=== PATIENT | male | born 1950 | race Caucasian/White ===

== ENCOUNTER 2019-04-19 02:08 | Inpatient (IN) | payer MEDICARE ==
[2019-04-19] MEDS: SODIUM CHLORIDE 0.9% 1L BAG IV* (02:32)
[2019-04-19 02:36] LABS: WHITE BLOOD COUNT 23.1 10^3/ul (4.8-10.8)
[2019-04-19 02:36] LABS: ABNORMAL IP MESSAGE 1; BASOPHILS % 0.2 % (0.0-2.0); HEMATOCRIT 35.4 % (42.0-52.0); HEMOGLOBIN 11.7 g/dl (14.0-18.0); LYMPHOCYTES # 0.6 10^3/ul (0.8-2.9); LYMPHOCYTES % 2.6 % (15.0-51.0); MEAN CORPUSCULAR HEMOGLOBIN 31.5 pg (29.0-33.0); MEAN CORPUSCULAR HGB CONC 33.1 g/dl (32.0-37.0); MEAN CORPUSCULAR VOLUME 95.2 fl (82.0-101.0); MEAN PLATELET VOLUME 10.3 fl (7.4-10.4); MONOCYTES % 4.2 % (0.0-11.0); NEUTROPHIL # 21.4 10^3/ul (1.6-7.5); NEUTROPHILS % 92.4 % (39.0-77.0); PLATELET COUNT 326 10^3/UL (140-415); POSITIVE DIFF @See below; RED BLOOD COUNT 3.72 10^6/ul (4.70-6.10); RED CELL DISTRIBUTION WIDTH 16.1 % (11.5-14.5)
[2019-04-19] MEDS: PIPER-TAZO 3.375 GM IV (PMX) 100 ML IVPB ×3 (02:38→21:28)
[2019-04-19 02:55] LABS: ADD MAN DIFF? NO
[2019-04-19 02:56] LABS: INR 1.51; PROTIME 18.3 Sec (11.9-14.9); PT RATIO 1.4
[2019-04-19 02:57] LABS: PARTIAL THROMBOPLASTIN TIME 65.8 Sec (23.0-35.0)
[2019-04-19 03:04] LABS: URINE BLOOD (Dip) POC Negative (NEGATIVE); URINE GLUCOSE (Dip) POC Negative (NEGATIVE); URINE KETONES (Dip) POC Negative (NEGATIVE); URINE LEUKOCYTE EST (Dip) POC Negative (NEGATIVE); URINE NITRITE (Dip) POC Negative (NEGATIVE); URINE TOTAL PROTEIN POC 1+ (NEGATIVE)
[2019-04-19 03:04] LABS: URINE PH (Dip) POC 7.5 (5.0-8.5)
[2019-04-19] MEDS: HYDROmorphONE 0.5 MG/0.5 ML SYG IV ×6 (03:04→23:27)
[2019-04-19 03:06] LABS: ALANINE AMINOTRANSFERASE 32 IU/L (13-69); ALBUMIN/GLOBULIN RATIO 0.55; ALKALINE PHOSPHATASE 128 IU/L (42-121); ANION GAP 5 (5-13); ASPARTATE AMINO TRANSFERASE 28 IU/L (15-46); BILIRUBIN,INDIRECT 0.6 mg/dl (0-1.1); BILIRUBIN,TOTAL 0.6 mg/dl (0.2-1.3); BLOOD UREA NITROGEN 16 mg/dl (7-20); CALCIUM 8.7 mg/dl (8.4-10.2); CARBON DIOXIDE 28 mmol/L (21-31); CHLORIDE 107 mmol/L (97-110); CREATININE 0.34 mg/dl (0.61-1.24); Estimated GFR > 60 mL/min (>60); GLUCOSE 123 mg/dl (70-220); SODIUM 140 mmol/L (135-144); TOTAL PROTEIN 8.4 g/dl (6.1-8.1)
[2019-04-19] MEDS: VANCOMYCIN 1 GM (PMX) 250 ML IVPB (03:13)
[2019-04-19 03:17] LABS: TROPONIN-I < 0.012 ng/ml (0.000-0.120)
[2019-04-19 03:35] LABS: Allen Test ACCEPTAB; Arterial Base Excess 3.1 mmol/L (-3.0-3); Arterial Blood Gas Oxygen Sat 96.7 mmHG (95.0-98.0); Arterial COHb 0 % (0.0-3.0); Arterial Fraction of Oxyhgb 96.3 % (93.0-99.0); Arterial HCO3 27.2 mmol/L (22.0-26.0); Arterial MetHb 0.4 % (0.0-1.5); Arterial pCO2 39.7 mmhg (35-45); Site Right Radial
[2019-04-19 04:00] LABS: ADD UMIC YES; UR AMORPHOUS CRYSTAL MANY /HPF (NONE SEEN); UR ASCORBIC ACID 40 mg/dL (NEGATIVE); UR BILIRUBIN (Dip) NEGATIVE (NEGATIVE); UR BLOOD (Dip) NEGATIVE (NEGATIVE); UR CLARITY CLOUDY (CLEAR); UR COLOR YELLOW (YELLOW); UR GLUCOSE (Dip) NEGATIVE (NEGATIVE); UR KETONES (Dip) NEGATIVE (NEGATIVE); UR LEUKOCYTE ESTERASE (Dip) NEGATIVE Leu/ul (NEGATIVE); UR NITRITE (Dip) NEGATIVE (NEGATIVE); UR RBC 1 /HPF (0-5); UR SPECIFIC GRAVITY (Dip) 1.019 (1.003-1.030); UR TOTAL PROTEIN (Dip) NEGATIVE (NEGATIVE); UR UROBILINOGEN (Dip) NEGATIVE (NEGATIVE); UR WBC 0 /HPF (0-5)
[2019-04-19 04:56] LABS: LACTIC ACID 2.3 mmol/L (0.5-2.0)
[2019-04-19] MEDS ORDERED: ONDANSETRON 4 MG INJ (04:56)
[2019-04-19] MEDS: ONDANSETRON 4 MG INJ IV ×4 (04:59→22:56)
[2019-04-19 05:03] LABS: AADO2 Arterial 223.6 mmHg (7.0-24.0); Blood Gas IEPAP 15/5
[2019-04-19 05:49] LABS: MODE VENT - AC
[2019-04-19 07:15] LABS: LACTIC ACID 1.4 mmol/L (0.5-2.0)
[2019-04-19] MEDS ORDERED: DOCUSATE SODIUM 10 MG/ML (10ML CUP) GTB (08:00)
[2019-04-19] MEDS: LACTULOSE 30ML CUP PO (08:00)
[2019-04-19] MEDS ORDERED: ONDANSETRON 4 MG TAB PO (08:00)
[2019-04-19] MEDS ORDERED: AL HYDROX/MG HYDROX/SIMETH 30 ML CUP GTB (08:00)
[2019-04-19] MEDS ORDERED: PANTOPRAZOLE (EC) 40 MG TAB PO (09:00)
[2019-04-19] MEDS: DEXTROSE 5%-0.45% NACL 1,000 ML IV (10:59)
[2019-04-19] MEDS: AMIODARONE 200 MG TAB GTB ×2 (11:03→21:01)
[2019-04-19] MEDS: ESCITALOPRAM 10 MG TAB GTB (11:03)
[2019-04-19] MEDS: LANSOPRAZOLE 30 MG CAP GTB (11:03)
[2019-04-19] MEDS: CHLORHEXIDINE GLUCONATE 15 ML UD CUP MM ×2 (11:03→21:01)
[2019-04-19] MEDS: LIDOCAINE 5% PATCH TD (11:06)
[2019-04-19] MEDS: BUDESONIDE (NEB) 0.5MG/2ML AMP NEB ×2 (12:34→20:36)
[2019-04-19] MEDS: LACTULOSE 30ML CUP GTB ×2 (13:31→21:01)
[2019-04-19] MEDS: ALBUTEROL/IPRATROPIUM (NEB) 3 ML AMP NEB (20:36)
[2019-04-19] MEDS: BALSAM PERU/CASTOR OIL 60 GM TUBE TOP (21:28)
[2019-04-20] MEDS: LACTULOSE 30ML CUP GTB ×4 (02:02→21:32)
[2019-04-20] MEDS: DEXTROSE 5%-0.45% NACL 1,000 ML IV (02:07)
[2019-04-20] MEDS: HYDROmorphONE 0.5 MG/0.5 ML SYG IV ×3 (04:28→13:34)
[2019-04-20] MEDS: PIPER-TAZO 3.375 GM IV (PMX) 100 ML IVPB ×3 (05:49→21:34)
[2019-04-20 06:03] LABS: WHITE BLOOD COUNT 8.5 10^3/ul (4.8-10.8)
[2019-04-20 06:03] LABS: HEMATOCRIT 28.4 % (42.0-52.0); HEMOGLOBIN 9.2 g/dl (14.0-18.0); MEAN CORPUSCULAR HEMOGLOBIN 31.4 pg (29.0-33.0); MEAN CORPUSCULAR HGB CONC 32.4 g/dl (32.0-37.0); MEAN CORPUSCULAR VOLUME 96.9 fl (82.0-101.0); MEAN PLATELET VOLUME 10.6 fl (7.4-10.4); PLATELET COUNT 229 10^3/UL (140-415); POSITIVE DIFF @See below; RED BLOOD COUNT 2.93 10^6/ul (4.70-6.10); RED CELL DISTRIBUTION WIDTH 16.5 % (11.5-14.5)
[2019-04-20 06:05] LABS: ADD MAN DIFF? YES
[2019-04-20 06:20] LABS: ANION GAP 1 (5-13); BLOOD UREA NITROGEN 16 mg/dl (7-20); CALCIUM 8.6 mg/dl (8.4-10.2); CARBON DIOXIDE 31 mmol/L (21-31); CHLORIDE 113 mmol/L (97-110); CREATININE 0.38 mg/dl (0.61-1.24); Estimated GFR > 60 mL/min (>60); GLUCOSE 121 mg/dl (70-220); MAGNESIUM 1.7 mg/dl (1.7-2.5); PHOSPHORUS 1.9 mg/dl (2.5-4.9); SODIUM 145 mmol/L (135-144)
[2019-04-20 06:39] LABS: POTASSIUM 2.7 mmol/L (3.5-5.1)
[2019-04-20 07:42] LABS: AADO2 Arterial 148.7 mmHg (7.0-24.0); Allen Test ACCEPTAB; Arterial Base Excess 4.8 mmol/L (-3.0-3); Arterial Blood Gas Oxygen Sat 97.1 mmHG (95.0-98.0); Arterial COHb 0.3 % (0.0-3.0); Arterial Fraction of Oxyhgb 96.5 % (93.0-99.0); Arterial HCO3 28.7 mmol/L (22.0-26.0); Arterial MetHb 0.3 % (0.0-1.5); Arterial pCO2 39.6 mmhg (35-45); MODE VENT - AC; Site Right Radial
[2019-04-20] MEDS: POTASSIUM CHLORIDE 20 MEQ POWDER FOR ORAL SOLN GTB (07:53)
[2019-04-20] MEDS: MULTIVITAMINS 30 ML CUP GTB (08:58)
[2019-04-20] MEDS: ESCITALOPRAM 10 MG TAB GTB (08:59)
[2019-04-20] MEDS: LANSOPRAZOLE 30 MG CAP GTB (08:59)
[2019-04-20] MEDS: ZINC SULFATE 220 MG CAP GTB (08:59)
[2019-04-20] MEDS: AMIODARONE 200 MG TAB GTB ×2 (08:59→21:31)
[2019-04-20] MEDS: CHLORHEXIDINE GLUCONATE 15 ML UD CUP MM ×2 (08:59→21:31)
[2019-04-20] MEDS: BALSAM PERU/CASTOR OIL 60 GM TUBE TOP ×2 (09:00→21:32)
[2019-04-20] MEDS: MAGNESIUM SULFATE 3 GM in DEXTROSE 5% 100 ML IVPB (09:01)
[2019-04-20] MEDS: LIDOCAINE 5% PATCH TD (09:01)
[2019-04-20] MEDS: FOLIC ACID 1 MG TAB GTB (09:01)
[2019-04-20 09:29] LABS: ANISOCYTOSIS 1+ (0-0); BAND NEUTROPHILS #M 0.7 10^3/ul (0.0-0.6); BAND NEUTROPHILS % (M) 9 % (0-4); BURR CELLS 1+ (0-0); LYMPHOCYTES #M 0.7 10^3/ul (0.8-2.9); LYMPHOCYTES % (M) 9 % (15-51); MONOCYTE #M 0.4 10^3/ul (0.3-0.9); MONOCYTES % (M) 5 % (0-11); PLATELET ESTIMATE NORMAL; POIKILOCYTOSIS 2+ (0-0); POLYCHROMASIA 1+ (0-0); SEG NEUT #M 6.6 10^3/ul (1.6-7.5); SEGMENTED NEUTROPHILS (M) % 77 % (39-77); SMUDGE%M 15 % (0-0); SPHEROCYTES 1+ (0-0)
[2019-04-20] MEDS: BUDESONIDE (NEB) 0.5MG/2ML AMP NEB ×2 (09:35→20:32)
[2019-04-20] MEDS: ASCORBIC ACID 250 MG TAB GTB (11:01)
[2019-04-20 14:46] LABS: ANION GAP 4 (5-13); BLOOD UREA NITROGEN 12 mg/dl (7-20); CALCIUM 8.1 mg/dl (8.4-10.2); CARBON DIOXIDE 28 mmol/L (21-31); CHLORIDE 112 mmol/L (97-110); CREATININE 0.35 mg/dl (0.61-1.24); Estimated GFR > 60 mL/min (>60); GLUCOSE 116 mg/dl (70-220); POTASSIUM 3.4 mmol/L (3.5-5.1); SODIUM 144 mmol/L (135-144)
[2019-04-20] MEDS ORDERED: VANCOMYCIN IV PER PHARMACY XX (15:00)
[2019-04-20] MEDS: VANCOMYCIN 500 MG (PMX) 100 ML IVPB (15:34)
[2019-04-20] MEDS: ACETAMINOPHEN 650MG/20.3ML CUP GTB (18:04)
[2019-04-20] MEDS: ZOLPIDEM 5 MG TAB GTB (18:04)
[2019-04-20] MEDS: ONDANSETRON 4 MG INJ IV (23:06)
[2019-04-21] MEDS: HYDROmorphONE 0.5 MG/0.5 ML SYG IV ×2 (01:35→13:27)
[2019-04-21] MEDS: LACTULOSE 30ML CUP GTB ×4 (03:50→20:00)
[2019-04-21] MEDS: ZOLPIDEM 5 MG TAB GTB ×2 (03:51→21:18)
[2019-04-21] MEDS: VANCOMYCIN 500 MG (PMX) 100 ML IVPB (03:52)
[2019-04-21] MEDS: PIPER-TAZO 3.375 GM IV (PMX) 100 ML IVPB ×3 (05:49→22:58)
[2019-04-21 05:55] LABS: ADD MAN DIFF? NO
[2019-04-21 06:09] LABS: WHITE BLOOD COUNT 6.8 10^3/ul (4.8-10.8)
[2019-04-21 06:09] LABS: BASOPHILS % 0.1 % (0.0-2.0); EOSINOPHILS % 0.4 % (0.0-7.0); HEMATOCRIT 27.5 % (42.0-52.0); HEMOGLOBIN 8.8 g/dl (14.0-18.0); LYMPHOCYTES # 1.1 10^3/ul (0.8-2.9); LYMPHOCYTES % 16.5 % (15.0-51.0); MEAN CORPUSCULAR HEMOGLOBIN 31.4 pg (29.0-33.0); MEAN CORPUSCULAR VOLUME 98.2 fl (82.0-101.0); MEAN PLATELET VOLUME 10.7 fl (7.4-10.4); MONOCYTE # 0.4 10^3/ul (0.3-0.9); MONOCYTES % 5.6 % (0.0-11.0); NEUTROPHIL # 5.2 10^3/ul (1.6-7.5); PLATELET COUNT 205 10^3/UL (140-415); RED CELL DISTRIBUTION WIDTH 16.1 % (11.5-14.5)
[2019-04-21 06:33] LABS: ALANINE AMINOTRANSFERASE 31 IU/L (13-69); ALBUMIN 2.3 g/dl (3.3-4.9); ALBUMIN/GLOBULIN RATIO 0.52; ALKALINE PHOSPHATASE 82 IU/L (42-121); ANION GAP 3 (5-13); ASPARTATE AMINO TRANSFERASE 25 IU/L (15-46); BILIRUBIN,INDIRECT 0.5 mg/dl (0-1.1); BILIRUBIN,TOTAL 0.5 mg/dl (0.2-1.3); BLOOD UREA NITROGEN 12 mg/dl (7-20); CALCIUM 7.9 mg/dl (8.4-10.2); CARBON DIOXIDE 29 mmol/L (21-31); CHLORIDE 110 mmol/L (97-110); CREATININE 0.29 mg/dl (0.61-1.24); Estimated GFR > 60 mL/min (>60); GLUCOSE 111 mg/dl (70-220); MAGNESIUM 1.7 mg/dl (1.7-2.5); POTASSIUM 3.2 mmol/L (3.5-5.1); SODIUM 142 mmol/L (135-144); TOTAL PROTEIN 6.7 g/dl (6.1-8.1)
[2019-04-21 06:54] LABS: PHOSPHORUS 1.6 mg/dl (2.5-4.9)
[2019-04-21] MEDS: CHLORHEXIDINE GLUCONATE 15 ML UD CUP MM ×2 (08:55→21:23)
[2019-04-21] MEDS: ZINC SULFATE 220 MG CAP GTB (08:56)
[2019-04-21] MEDS: LANSOPRAZOLE 30 MG CAP GTB (08:56)
[2019-04-21] MEDS: ASCORBIC ACID 250 MG TAB GTB (08:56)
[2019-04-21] MEDS: AMIODARONE 200 MG TAB GTB ×2 (08:56→21:18)
[2019-04-21] MEDS: FOLIC ACID 1 MG TAB GTB (08:56)
[2019-04-21] MEDS: ESCITALOPRAM 10 MG TAB GTB (08:56)
[2019-04-21] MEDS: MULTIVITAMINS 30 ML CUP GTB (08:57)
[2019-04-21] MEDS: COLLAGENASE 5 GM (UD JAR) TOP (09:05)
[2019-04-21] MEDS: BALSAM PERU/CASTOR OIL 60 GM TUBE TOP ×2 (09:06→21:23)
[2019-04-21] MEDS: LIDOCAINE 5% PATCH TD (09:06)
[2019-04-21] MEDS: BUDESONIDE (NEB) 0.5MG/2ML AMP NEB ×2 (09:25→21:04)
[2019-04-21] MEDS: POTASSIUM CHLORIDE 20 MEQ POWDER FOR ORAL SOLN GTB (13:27)
[2019-04-21 15:53] LABS: VANCOMYCIN,TROUGH 5.7 ug/ml (10.0-20.0)
[2019-04-21] MEDS: VANCOMYCIN 1 GM 250 ML IVPB (17:33)
[2019-04-21] MEDS: ONDANSETRON 4 MG INJ IV (19:33)
[2019-04-22] MEDS: HYDROmorphONE 0.5 MG/0.5 ML SYG IV ×2 (01:05→13:03)
[2019-04-22] MEDS: LACTULOSE 30ML CUP GTB ×4 (01:06→20:00)
[2019-04-22] MEDS: PIPER-TAZO 3.375 GM IV (PMX) 100 ML IVPB ×3 (05:05→23:26)
[2019-04-22] MEDS: VANCOMYCIN 1 GM 250 ML IVPB ×2 (05:37→18:49)
[2019-04-22 06:11] LABS: ADD MAN DIFF? NO
[2019-04-22 06:24] LABS: WHITE BLOOD COUNT 5.7 10^3/ul (4.8-10.8)
[2019-04-22 06:24] LABS: BASOPHILS % 0.4 % (0.0-2.0); EOSINOPHILS # 0.1 10^3/ul (0.0-0.5); EOSINOPHILS % 1.6 % (0.0-7.0); HEMATOCRIT 28.5 % (42.0-52.0); HEMOGLOBIN 9.1 g/dl (14.0-18.0); LYMPHOCYTES # 1.4 10^3/ul (0.8-2.9); LYMPHOCYTES % 23.9 % (15.0-51.0); MEAN CORPUSCULAR HEMOGLOBIN 30.8 pg (29.0-33.0); MEAN CORPUSCULAR HGB CONC 31.9 g/dl (32.0-37.0); MEAN CORPUSCULAR VOLUME 96.6 fl (82.0-101.0); MEAN PLATELET VOLUME 11.1 fl (7.4-10.4); MONOCYTE # 0.5 10^3/ul (0.3-0.9); MONOCYTES % 7.9 % (0.0-11.0); NEUTROPHIL # 3.8 10^3/ul (1.6-7.5); NEUTROPHILS % 65.7 % (39.0-77.0); PLATELET COUNT 195 10^3/UL (140-415); RED BLOOD COUNT 2.95 10^6/ul (4.70-6.10); RED CELL DISTRIBUTION WIDTH 15.7 % (11.5-14.5)
[2019-04-22 06:56] LABS: ANION GAP 3 (5-13); BLOOD UREA NITROGEN 11 mg/dl (7-20); CALCIUM 7.9 mg/dl (8.4-10.2); CARBON DIOXIDE 29 mmol/L (21-31); CHLORIDE 107 mmol/L (97-110); CREATININE 0.29 mg/dl (0.61-1.24); Estimated GFR > 60 mL/min (>60); GLUCOSE 82 mg/dl (70-220); MAGNESIUM 1.7 mg/dl (1.7-2.5); PHOSPHORUS 2.2 mg/dl (2.5-4.9); POTASSIUM 3.6 mmol/L (3.5-5.1); SODIUM 139 mmol/L (135-144)
[2019-04-22] MEDS: CHLORHEXIDINE GLUCONATE 15 ML UD CUP MM ×2 (09:17→20:39)
[2019-04-22] MEDS: COLLAGENASE 5 GM (UD JAR) TOP (09:17)
[2019-04-22] MEDS: LIDOCAINE 5% PATCH TD (09:17)
[2019-04-22] MEDS: ASCORBIC ACID 250 MG TAB GTB (09:18)
[2019-04-22] MEDS: LANSOPRAZOLE 30 MG CAP GTB (09:18)
[2019-04-22] MEDS: FOLIC ACID 1 MG TAB GTB (09:18)
[2019-04-22] MEDS: ESCITALOPRAM 10 MG TAB GTB (09:18)
[2019-04-22] MEDS: ZINC SULFATE 220 MG CAP GTB (09:18)
[2019-04-22] MEDS: BALSAM PERU/CASTOR OIL 60 GM TUBE TOP ×2 (09:19→20:40)
[2019-04-22] MEDS: AMIODARONE 200 MG TAB GTB ×2 (09:19→20:39)
[2019-04-22] MEDS: LORAZEPAM 2 MG INJ IV ×2 (09:20→17:22)
[2019-04-22] MEDS: MULTIVITAMINS 30 ML CUP GTB (09:28)
[2019-04-22] MEDS: BUDESONIDE (NEB) 0.5MG/2ML AMP NEB ×2 (09:48→21:05)
[2019-04-22] MEDS ORDERED: SODIUM PHOSPHATE 15 MMOL in SOD CHLORIDE 0.9% 250 ML IVPB (13:30)
[2019-04-22] MEDS: SOD CHLORIDE 0.9% IVPB (14:57)
[2019-04-22] MEDS: SODIUM PHOSPHATE IVPB (14:57)
[2019-04-22] MEDS: ZOLPIDEM 5 MG TAB GTB (20:40)
[2019-04-23] MEDS: HYDROmorphONE 0.5 MG/0.5 ML SYG IV ×2 (00:27→12:51)
[2019-04-23] MEDS: LORAZEPAM 2 MG INJ IV ×3 (01:15→22:49)
[2019-04-23] MEDS: LACTULOSE 30ML CUP GTB ×4 (02:00→20:28)
[2019-04-23] MEDS: PIPER-TAZO 3.375 GM IV (PMX) 100 ML IVPB ×3 (05:37→21:56)
[2019-04-23 05:46] LABS: ADD MAN DIFF? NO
[2019-04-23 06:06] LABS: BASOPHILS % 0.3 % (0.0-2.0); EOSINOPHILS # 0.1 10^3/ul (0.0-0.5); EOSINOPHILS % 1.2 % (0.0-7.0); HEMATOCRIT 27.5 % (42.0-52.0); LYMPHOCYTES # 1.2 10^3/ul (0.8-2.9); LYMPHOCYTES % 16.5 % (15.0-51.0); MEAN CORPUSCULAR HEMOGLOBIN 31.1 pg (29.0-33.0); MEAN CORPUSCULAR HGB CONC 32.7 g/dl (32.0-37.0); MEAN CORPUSCULAR VOLUME 95.2 fl (82.0-101.0); MONOCYTE # 0.7 10^3/ul (0.3-0.9); MONOCYTES % 9.3 % (0.0-11.0); NEUTROPHIL # 5.2 10^3/ul (1.6-7.5); NEUTROPHILS % 72.1 % (39.0-77.0); PLATELET COUNT 217 10^3/UL (140-415); RED BLOOD COUNT 2.89 10^6/ul (4.70-6.10); RED CELL DISTRIBUTION WIDTH 15.3 % (11.5-14.5)
[2019-04-23 06:06] LABS: WHITE BLOOD COUNT 7.2 10^3/ul (4.8-10.8)
[2019-04-23] MEDS: VANCOMYCIN 1 GM 250 ML IVPB (06:09)
[2019-04-23 06:48] LABS: ANION GAP 2 (5-13); BLOOD UREA NITROGEN 8 mg/dl (7-20); CALCIUM 7.4 mg/dl (8.4-10.2); CARBON DIOXIDE 30 mmol/L (21-31); CHLORIDE 104 mmol/L (97-110); CREATININE 0.26 mg/dl (0.61-1.24); Estimated GFR > 60 mL/min (>60); GLUCOSE 115 mg/dl (70-220); MAGNESIUM 1.7 mg/dl (1.7-2.5); POTASSIUM 3.3 mmol/L (3.5-5.1); SODIUM 136 mmol/L (135-144)
[2019-04-23] MEDS: BUDESONIDE (NEB) 0.5MG/2ML AMP NEB ×2 (08:33→20:01)
[2019-04-23] MEDS: MULTIVITAMINS 30 ML CUP GTB (09:25)
[2019-04-23] MEDS: LANSOPRAZOLE 30 MG CAP GTB (09:26)
[2019-04-23] MEDS: ASCORBIC ACID 250 MG TAB GTB (09:26)
[2019-04-23] MEDS: POTASSIUM CHLORIDE 20 MEQ POWDER FOR ORAL SOLN NGT (09:26)
[2019-04-23] MEDS: FOLIC ACID 1 MG TAB GTB (09:26)
[2019-04-23] MEDS: ZINC SULFATE 220 MG CAP GTB (09:26)
[2019-04-23] MEDS: ESCITALOPRAM 10 MG TAB GTB (09:26)
[2019-04-23] MEDS: CHLORHEXIDINE GLUCONATE 15 ML UD CUP MM ×2 (09:26→20:28)
[2019-04-23] MEDS: COLLAGENASE 5 GM (UD JAR) TOP (09:26)
[2019-04-23] MEDS: LIDOCAINE 5% PATCH TD (09:27)
[2019-04-23] MEDS: AMIODARONE 200 MG TAB GTB ×2 (09:28→20:28)
[2019-04-23] MEDS: BALSAM PERU/CASTOR OIL 60 GM TUBE TOP ×2 (09:29→20:28)
[2019-04-23] MEDS: ALBUTEROL/IPRATROPIUM (NEB) 3 ML AMP NEB (15:45)
[2019-04-23] MEDS: MAGNESIUM SULFATE 4 GM/100 ML 100 ML IVPB (18:06)
[2019-04-24] MEDS: LACTULOSE 30ML CUP GTB ×3 (02:05→14:06)
[2019-04-24] MEDS: HYDROmorphONE 0.5 MG/0.5 ML SYG IV ×2 (02:26→14:06)
[2019-04-24] MEDS: PIPER-TAZO 3.375 GM IV (PMX) 100 ML IVPB ×2 (05:10→14:06)
[2019-04-24 05:56] LABS: ADD MAN DIFF? NO
[2019-04-24 06:02] LABS: BASOPHILS % 0.4 % (0.0-2.0); EOSINOPHILS # 0.2 10^3/ul (0.0-0.5); EOSINOPHILS % 2.7 % (0.0-7.0); HEMATOCRIT 26.6 % (42.0-52.0); HEMOGLOBIN 8.7 g/dl (14.0-18.0); LYMPHOCYTES # 1.1 10^3/ul (0.8-2.9); LYMPHOCYTES % 20.5 % (15.0-51.0); MEAN CORPUSCULAR HEMOGLOBIN 31.1 pg (29.0-33.0); MEAN CORPUSCULAR HGB CONC 32.7 g/dl (32.0-37.0); MONOCYTE # 0.6 10^3/ul (0.3-0.9); MONOCYTES % 11.5 % (0.0-11.0); NEUTROPHIL # 3.5 10^3/ul (1.6-7.5); NEUTROPHILS % 63.8 % (39.0-77.0); PLATELET COUNT 203 10^3/UL (140-415); RED CELL DISTRIBUTION WIDTH 15.5 % (11.5-14.5)
[2019-04-24 06:02] LABS: WHITE BLOOD COUNT 5.6 10^3/ul (4.8-10.8)
[2019-04-24 07:06] LABS: ANION GAP 2 (5-13); BLOOD UREA NITROGEN 6 mg/dl (7-20); CALCIUM 7.5 mg/dl (8.4-10.2); CARBON DIOXIDE 31 mmol/L (21-31); CHLORIDE 105 mmol/L (97-110); CREATININE 0.27 mg/dl (0.61-1.24); Estimated GFR > 60 mL/min (>60); GLUCOSE 85 mg/dl (70-220); MAGNESIUM 2.1 mg/dl (1.7-2.5); PHOSPHORUS 3.1 mg/dl (2.5-4.9); POTASSIUM 3.6 mmol/L (3.5-5.1); SODIUM 138 mmol/L (135-144)
[2019-04-24] MEDS: BUDESONIDE (NEB) 0.5MG/2ML AMP NEB (08:16)
[2019-04-24] MEDS: FOLIC ACID 1 MG TAB GTB (09:00)
[2019-04-24] MEDS: COLLAGENASE 5 GM (UD JAR) TOP (09:15)
[2019-04-24] MEDS: BALSAM PERU/CASTOR OIL 60 GM TUBE TOP (09:15)
[2019-04-24] MEDS: CHLORHEXIDINE GLUCONATE 15 ML UD CUP MM (09:17)
[2019-04-24] MEDS: MULTIVITAMINS 30 ML CUP GTB (09:18)
[2019-04-24] MEDS: AMIODARONE 200 MG TAB GTB (09:18)
[2019-04-24] MEDS: ZINC SULFATE 220 MG CAP GTB (09:18)
[2019-04-24] MEDS: ESCITALOPRAM 10 MG TAB GTB (09:19)
[2019-04-24] MEDS: LANSOPRAZOLE 30 MG CAP GTB (09:19)
[2019-04-24] MEDS: ASCORBIC ACID 250 MG TAB GTB (09:19)
[2019-04-24] MEDS: LIDOCAINE 5% PATCH TD (09:20)
[2019-04-24] MEDS: LORAZEPAM 2 MG INJ IV (10:02)
== END 2019-04-24 16:21 | DRG 870 ==
LOC: 6WM 04-20 01:49 → E/R 02:08 → ICU 03:45
PROC: 5A1955Z Respiratory Ventilation, Greater than 96 Consecutive Hours (ICD-10-PCS; principal; 2019-04-19)
DX: A41.9 Sepsis, unspecified organism (principal); J96.20 Acute and chronic respiratory failure, unspecified whether with hypoxia or hypercapnia; J18.9 Pneumonia, unspecified organism; E43 Unspecified severe protein-calorie malnutrition; G93.40 Encephalopathy, unspecified; Z68.1 Body mass index [BMI] 19.9 or less, adult; Z99.11 Dependence on respirator [ventilator] status; R65.20 Severe sepsis without septic shock; Z93.0 Tracheostomy status; M54.2 Cervicalgia; M54.9 Dorsalgia, unspecified; R13.10 Dysphagia, unspecified; K21.9 Gastro-esophageal reflux disease without esophagitis; I10 Essential (primary) hypertension; F32.9 Major depressive disorder, single episode, unspecified; K59.00 Constipation, unspecified; L89.150 Pressure ulcer of sacral region, unstageable; L89.510 Pressure ulcer of right ankle, unstageable; L89.620 Pressure ulcer of left heel, unstageable; G72.89 Other specified myopathies
CPT/HCPCS: 36415; 36600; 71045; 72020; 72040; 80048; 80053; 80202; 81001; 81003; 82803; 83605; 83735; 84100; 84484; 85025; 85610; 85730; 87040-91; 87045; 87070; 87081; 87086; 93005; 93306; 94002; 94003; 94640; 94664; 96365; 96367; 96375; 99285-25

== ENCOUNTER 2019-07-14 11:43 | Inpatient (IN) | payer MEDICARE, MEDICAID ==
[2019-07-14 12:09] LABS: ADD MAN DIFF? NO
[2019-07-14 12:16] LABS: WHITE BLOOD COUNT 18.4 10^3/ul (4.8-10.8)
[2019-07-14 12:16] LABS: HEMOGLOBIN 14.1 g/dl (14.0-18.0); RED BLOOD COUNT 5.01 10^6/ul (4.70-6.10)
[2019-07-14 12:17] LABS: BASOPHILS % 0.2 % (0.0-2.0); HEMATOCRIT 42.5 % (42.0-52.0); LYMPHOCYTES # 1.6 10^3/ul (0.8-2.9); LYMPHOCYTES % 8.9 % (15.0-51.0); MEAN CORPUSCULAR HEMOGLOBIN 28.1 pg (29.0-33.0); MEAN CORPUSCULAR HGB CONC 33.2 g/dl (32.0-37.0); MEAN CORPUSCULAR VOLUME 84.8 fl (82.0-101.0); MEAN PLATELET VOLUME 11.2 fl (7.4-10.4); MONOCYTE # 1.3 10^3/ul (0.3-0.9); MONOCYTES % 7.2 % (0.0-11.0); NEUTROPHIL # 15.3 10^3/ul (1.6-7.5); NEUTROPHILS % 83.1 % (39.0-77.0); PLATELET COUNT 204 10^3/UL (140-415)
[2019-07-14] MEDS: ALBUTEROL 0.083% (NEB) 2.5 MG/3 ML AMP INH (12:23)
[2019-07-14] MEDS: IPRATROPIUM (NEB) 0.5 MG/2.5 ML AMP INH (12:23)
[2019-07-14 12:28] LABS: ALANINE AMINOTRANSFERASE 40 IU/L (13-69); ALBUMIN 3.2 g/dl (3.3-4.9); ALBUMIN/GLOBULIN RATIO 0.65; ALKALINE PHOSPHATASE 103 IU/L (42-121); ANION GAP 7 (5-13); ASPARTATE AMINO TRANSFERASE 35 IU/L (15-46); BILIRUBIN,INDIRECT 0.4 mg/dl (0-1.1); BILIRUBIN,TOTAL 0.4 mg/dl (0.2-1.3); BLOOD UREA NITROGEN 13 mg/dl (7-20); CALCIUM 9.4 mg/dl (8.4-10.2); CARBON DIOXIDE 29 mmol/L (21-31); CHLORIDE 97 mmol/L (97-110); CREATININE 0.33 mg/dl (0.61-1.24); Estimated GFR > 60 mL/min (>60); GLUCOSE 103 mg/dl (70-220); POTASSIUM 4.4 mmol/L (3.5-5.1); SODIUM 133 mmol/L (135-144); TOTAL PROTEIN 8.1 g/dl (6.1-8.1)
[2019-07-14 12:31] LABS: INR 1.14; PROTIME 14.7 Sec (11.9-14.9); PT RATIO 1.1
[2019-07-14 12:33] LABS: PARTIAL THROMBOPLASTIN TIME 44.8 Sec (23.0-35.0)
[2019-07-14 12:39] LABS: TROPONIN-I < 0.012 ng/ml (0.000-0.120)
[2019-07-14] MEDS: KETOROLAC 30 MG INJ IV (13:17)
[2019-07-14] MEDS: DEXAMETHASONE 10 MG/ML 1 ML INJ IV (13:17)
[2019-07-14] MEDS ORDERED: ACETAMINOPHEN 325 MG TAB PO ×2 (14:00→19:30)
[2019-07-14] MEDS ORDERED: ONDANSETRON 4 MG INJ IV ×2 (14:00→19:30)
[2019-07-14] MEDS: PIPER-TAZO 3.375 GM IV (PMX) 100 ML IVPB ×2 (14:54→21:37)
[2019-07-14] MEDS: SODIUM CHLORIDE 0.9% 1L BAG IV* (14:54)
[2019-07-14 15:03] LABS: LACTIC ACID 1.1 mmol/L (0.5-2.0)
[2019-07-14 16:46] LABS: LACTIC ACID 1.6 mmol/L (0.5-2.0)
[2019-07-14] MEDS ORDERED: VANCOMYCIN IV PER PHARMACY XX (19:30)
[2019-07-14] MEDS ORDERED: AL HYDROX/MG HYDROX/SIMETH 30 ML CUP GTB (19:30)
[2019-07-14] MEDS ORDERED: CEFTRIAXONE 1 GM/50 ML (PMX) 50 ML IVPB (19:30)
[2019-07-14] MEDS ORDERED: AZITHROMYCIN 500MG/NS (PMX) 250 ML IV (19:30)
[2019-07-14] MEDS ORDERED: ZOLPIDEM 5 MG TAB PO (19:30)
[2019-07-14] MEDS ORDERED: DOCUSATE SODIUM 10 MG/ML (10ML CUP) GTB (19:30)
[2019-07-14] MEDS ORDERED: NACL 0.9% 3 ML SYG IV (19:30)
[2019-07-14] MEDS: BUDESONIDE (NEB) 0.5MG/2ML AMP INH (20:07)
[2019-07-14] MEDS: HYDROmorphONE 2 MG TAB GTB (20:38)
[2019-07-14] MEDS: LACTULOSE 30ML CUP GTB (21:45)
[2019-07-14] MEDS: VANCOMYCIN 1 GM 250 ML IVPB (22:13)
[2019-07-14] MEDS: DIPHENHYDRAMINE 25 MG CAP GTB (22:19)
[2019-07-14] MEDS: ZOLPIDEM 5 MG TAB GTB (22:19)
[2019-07-15] MEDS: LACTULOSE 30ML CUP GTB ×4 (01:12→19:33)
[2019-07-15] MEDS: HYDROmorphONE 2 MG TAB GTB ×5 (04:01→20:45)
[2019-07-15 05:43] LABS: ADD MAN DIFF? NO
[2019-07-15] MEDS: PIPER-TAZO 3.375 GM IV (PMX) 100 ML IVPB ×3 (05:46→22:45)
[2019-07-15 05:51] LABS: WHITE BLOOD COUNT 14.3 10^3/ul (4.8-10.8)
[2019-07-15 05:51] LABS: BASOPHILS % 0.1 % (0.0-2.0); HEMATOCRIT 37.8 % (42.0-52.0); HEMOGLOBIN 12.3 g/dl (14.0-18.0); LYMPHOCYTES # 0.9 10^3/ul (0.8-2.9); LYMPHOCYTES % 6.1 % (15.0-51.0); MEAN CORPUSCULAR HEMOGLOBIN 28.1 pg (29.0-33.0); MEAN CORPUSCULAR HGB CONC 32.5 g/dl (32.0-37.0); MEAN CORPUSCULAR VOLUME 86.5 fl (82.0-101.0); MONOCYTE # 0.7 10^3/ul (0.3-0.9); MONOCYTES % 4.8 % (0.0-11.0); NEUTROPHIL # 12.7 10^3/ul (1.6-7.5); NEUTROPHILS % 88.6 % (39.0-77.0); PLATELET COUNT 165 10^3/UL (140-415); RED BLOOD COUNT 4.37 10^6/ul (4.70-6.10); RED CELL DISTRIBUTION WIDTH 17.8 % (11.5-14.5)
[2019-07-15 06:15] LABS: ALANINE AMINOTRANSFERASE 36 IU/L (13-69); ALBUMIN 2.6 g/dl (3.3-4.9); ALBUMIN/GLOBULIN RATIO 0.68; ALKALINE PHOSPHATASE 86 IU/L (42-121); ANION GAP 4 (5-13); ASPARTATE AMINO TRANSFERASE 27 IU/L (15-46); BILIRUBIN,INDIRECT 0.3 mg/dl (0-1.1); BILIRUBIN,TOTAL 0.3 mg/dl (0.2-1.3); BLOOD UREA NITROGEN 17 mg/dl (7-20); CARBON DIOXIDE 29 mmol/L (21-31); CHLORIDE 103 mmol/L (97-110); CHOL/HDL RATIO 3.4 RATIO; CHOLESTEROL 106 mg/dl (100-200); CREATININE 0.33 mg/dl (0.61-1.24); Estimated GFR > 60 mL/min (>60); GLUCOSE 121 mg/dl (70-220); HDL CHOLESTEROL 31 mg/dl (30-78); LDL CHOLESTEROL,CALCULATED 66 mg/dl; MAGNESIUM 1.9 mg/dl (1.7-2.5); PHOSPHORUS 3.2 mg/dl (2.5-4.9); POTASSIUM 4.2 mmol/L (3.5-5.1); SODIUM 136 mmol/L (135-144); TOTAL PROTEIN 6.4 g/dl (6.1-8.1); TRIGLYCERIDES 44 mg/dl (0-149)
[2019-07-15 06:33] LABS: FREE THYROXINE INDEX (Calc) 3.67 ug/ml (0.65-3.89); T3 UPTAKE 47.1 % (23.5-40.5); T4 (THYROXINE) 7.8 ug/dl (5.5-11.0)
[2019-07-15 07:20] LABS: HEMOGLOBIN A1C 4.7 % (0-5.9)
[2019-07-15] MEDS: BALSAM PERU/CASTOR OIL 60 GM TUBE TOP (08:27)
[2019-07-15] MEDS: LIDOCAINE 5% PATCH TD (08:28)
[2019-07-15] MEDS: VANCOMYCIN 1 GM 250 ML IVPB ×2 (08:28→20:45)
[2019-07-15] MEDS: LANSOPRAZOLE 30 MG CAP GTB (08:30)
[2019-07-15] MEDS: ESCITALOPRAM 10 MG TAB GTB (08:31)
[2019-07-15] MEDS: FOLIC ACID 1 MG TAB GTB (08:31)
[2019-07-15] MEDS: FAMOTIDINE 20 MG TAB GTB (08:31)
[2019-07-15] MEDS: AMIODARONE 200 MG TAB GTB (08:31)
[2019-07-15] MEDS: BUDESONIDE (NEB) 0.5MG/2ML AMP INH ×2 (08:35→19:38)
[2019-07-15] MEDS: DIPHENHYDRAMINE 25 MG CAP GTB (19:33)
[2019-07-15] MEDS: ZOLPIDEM 5 MG TAB GTB (22:45)
[2019-07-16] MEDS: HYDROmorphONE 2 MG TAB GTB ×6 (01:03→21:46)
[2019-07-16] MEDS: LACTULOSE 30ML CUP GTB ×5 (01:03→19:30)
[2019-07-16] MEDS: PIPER-TAZO 3.375 GM IV (PMX) 100 ML IVPB ×3 (05:55→21:40)
[2019-07-16] MEDS: FAMOTIDINE 20 MG TAB GTB (08:39)
[2019-07-16] MEDS: ESCITALOPRAM 10 MG TAB GTB (08:39)
[2019-07-16] MEDS: FOLIC ACID 1 MG TAB GTB (08:39)
[2019-07-16] MEDS: LANSOPRAZOLE 30 MG CAP GTB (08:39)
[2019-07-16] MEDS: BALSAM PERU/CASTOR OIL 60 GM TUBE TOP (08:40)
[2019-07-16] MEDS: LIDOCAINE 5% PATCH TD (08:40)
[2019-07-16] MEDS: AMIODARONE 200 MG TAB GTB (08:40)
[2019-07-16 09:26] LABS: VANCOMYCIN,TROUGH 9.8 ug/ml (10.0-20.0)
[2019-07-16] MEDS: VANCOMYCIN 1 GM 250 ML IVPB (09:30)
[2019-07-16] MEDS: BUDESONIDE (NEB) 0.5MG/2ML AMP INH ×2 (09:46→19:38)
[2019-07-16] MEDS: DIPHENHYDRAMINE 25 MG CAP GTB ×2 (12:01→21:46)
[2019-07-16] MEDS: ALBUTEROL/IPRATROPIUM (NEB) 3 ML AMP INH ×2 (14:32→19:38)
[2019-07-16] MEDS: VANCOMYCIN 1.25 GM/NS 250 ML 250 ML IVPB (20:58)
[2019-07-17] MEDS: LACTULOSE 30ML CUP GTB ×4 (01:30→20:39)
[2019-07-17] MEDS: HYDROmorphONE 2 MG TAB GTB ×5 (02:54→22:07)
[2019-07-17] MEDS: PIPER-TAZO 3.375 GM IV (PMX) 100 ML IVPB ×3 (05:45→22:06)
[2019-07-17] MEDS: LANSOPRAZOLE (SOLTAB) 30 MG TAB GTB (05:46)
[2019-07-17 05:52] LABS: CREATININE 0.32 mg/dl (0.61-1.24)
[2019-07-17 05:52] LABS: BLOOD UREA NITROGEN 11 mg/dl (7-20)
[2019-07-17] MEDS: ALBUTEROL/IPRATROPIUM (NEB) 3 ML AMP INH (07:54)
[2019-07-17] MEDS: BUDESONIDE (NEB) 0.5MG/2ML AMP INH ×2 (07:55→19:42)
[2019-07-17] MEDS: FOLIC ACID 1 MG TAB GTB (08:30)
[2019-07-17] MEDS: ESCITALOPRAM 10 MG TAB GTB (08:31)
[2019-07-17] MEDS: FAMOTIDINE 20 MG TAB GTB (08:31)
[2019-07-17] MEDS: AMIODARONE 200 MG TAB GTB (08:31)
[2019-07-17] MEDS: BALSAM PERU/CASTOR OIL 60 GM TUBE TOP (08:32)
[2019-07-17] MEDS: LIDOCAINE 5% PATCH TD (08:32)
[2019-07-17] MEDS: VANCOMYCIN 1.25 GM/NS 250 ML 250 ML IVPB ×2 (08:34→20:40)
[2019-07-17] MEDS: DIPHENHYDRAMINE 25 MG CAP GTB (13:35)
[2019-07-17] MEDS: ZOLPIDEM 5 MG TAB GTB (23:06)
[2019-07-18] MEDS: HYDROmorphONE 2 MG TAB GTB ×5 (02:03→20:32)
[2019-07-18] MEDS: LACTULOSE 30ML CUP GTB ×5 (02:04→20:32)
[2019-07-18 05:51] LABS: ADD MAN DIFF? NO
[2019-07-18 06:01] LABS: BASOPHILS % 0.3 % (0.0-2.0); EOSINOPHILS # 0.2 10^3/ul (0.0-0.5); EOSINOPHILS % 2.5 % (0.0-7.0); HEMATOCRIT 40.4 % (42.0-52.0); HEMOGLOBIN 12.9 g/dl (14.0-18.0); LYMPHOCYTES # 1.1 10^3/ul (0.8-2.9); LYMPHOCYTES % 14.7 % (15.0-51.0); MEAN CORPUSCULAR HEMOGLOBIN 27.9 pg (29.0-33.0); MEAN CORPUSCULAR HGB CONC 31.9 g/dl (32.0-37.0); MEAN CORPUSCULAR VOLUME 87.4 fl (82.0-101.0); MEAN PLATELET VOLUME 11.5 fl (7.4-10.4); MONOCYTE # 0.8 10^3/ul (0.3-0.9); NEUTROPHIL # 5.1 10^3/ul (1.6-7.5); NEUTROPHILS % 71.1 % (39.0-77.0); PLATELET COUNT 182 10^3/UL (140-415); RED BLOOD COUNT 4.62 10^6/ul (4.70-6.10); RED CELL DISTRIBUTION WIDTH 17.7 % (11.5-14.5)
[2019-07-18 06:01] LABS: WHITE BLOOD COUNT 7.2 10^3/ul (4.8-10.8)
[2019-07-18] MEDS: LANSOPRAZOLE (SOLTAB) 30 MG TAB GTB (06:30)
[2019-07-18] MEDS: PIPER-TAZO 3.375 GM IV (PMX) 100 ML IVPB ×3 (06:30→22:45)
[2019-07-18] MEDS: FOLIC ACID 1 MG TAB GTB (08:28)
[2019-07-18] MEDS: ASCORBIC ACID 250 MG TAB GTB (08:28)
[2019-07-18] MEDS: FAMOTIDINE 20 MG TAB GTB (08:28)
[2019-07-18] MEDS: DIPHENHYDRAMINE 25 MG CAP GTB ×2 (08:28→20:32)
[2019-07-18] MEDS: MULTIVITAMINS 30 ML CUP GTB (08:28)
[2019-07-18] MEDS: AMIODARONE 200 MG TAB GTB (08:29)
[2019-07-18] MEDS: ESCITALOPRAM 10 MG TAB GTB (08:29)
[2019-07-18] MEDS: LIDOCAINE 5% PATCH TD (08:30)
[2019-07-18] MEDS: BALSAM PERU/CASTOR OIL 60 GM TUBE TOP (08:31)
[2019-07-18] MEDS: BUDESONIDE (NEB) 0.5MG/2ML AMP INH ×2 (08:41→20:36)
[2019-07-18] MEDS: VANCOMYCIN 1.25 GM/NS 250 ML 250 ML IVPB ×2 (12:23→20:32)
[2019-07-18] MEDS: ALBUTEROL/IPRATROPIUM (NEB) 3 ML AMP INH (15:00)
[2019-07-18] MEDS: BARIUM SULFATE 135 ML (E-Z HD) PO (19:59)
[2019-07-19] MEDS: ZOLPIDEM 5 MG TAB GTB (00:30)
[2019-07-19] MEDS: LACTULOSE 30ML CUP GTB ×4 (00:38→19:30)
[2019-07-19] MEDS: HYDROmorphONE 2 MG TAB GTB ×6 (00:38→22:16)
[2019-07-19] MEDS: PIPER-TAZO 3.375 GM IV (PMX) 100 ML IVPB ×3 (05:50→22:16)
[2019-07-19] MEDS: LANSOPRAZOLE (SOLTAB) 30 MG TAB GTB (05:50)
[2019-07-19] MEDS: BUDESONIDE (NEB) 0.5MG/2ML AMP INH ×2 (08:14→20:07)
[2019-07-19] MEDS: FAMOTIDINE 20 MG TAB GTB (09:05)
[2019-07-19] MEDS: ESCITALOPRAM 10 MG TAB GTB (09:05)
[2019-07-19] MEDS: LIDOCAINE 5% PATCH TD (09:05)
[2019-07-19] MEDS: FOLIC ACID 1 MG TAB GTB (09:05)
[2019-07-19] MEDS: ASCORBIC ACID 250 MG TAB GTB (09:05)
[2019-07-19] MEDS: MULTIVITAMINS 30 ML CUP GTB (09:05)
[2019-07-19] MEDS: AMIODARONE 200 MG TAB GTB (09:07)
[2019-07-19] MEDS: VANCOMYCIN 1.25 GM/NS 250 ML 250 ML IVPB ×2 (09:17→20:03)
[2019-07-19] MEDS: DIPHENHYDRAMINE 25 MG CAP GTB ×2 (09:17→22:15)
[2019-07-19] MEDS: BALSAM PERU/CASTOR OIL 60 GM TUBE TOP (09:18)
[2019-07-19 09:55] LABS: CREATININE 0.34 mg/dl (0.61-1.24)
[2019-07-19 09:55] LABS: BLOOD UREA NITROGEN 12 mg/dl (7-20)
[2019-07-19 09:59] LABS: VANCOMYCIN,TROUGH 12.7 ug/ml (10.0-20.0)
[2019-07-20] MEDS: LACTULOSE 30ML CUP GTB ×4 (00:53→19:00)
[2019-07-20] MEDS: HYDROmorphONE 2 MG TAB GTB ×6 (03:09→23:03)
[2019-07-20] MEDS: PIPER-TAZO 3.375 GM IV (PMX) 100 ML IVPB ×3 (05:46→21:28)
[2019-07-20] MEDS: LANSOPRAZOLE (SOLTAB) 30 MG TAB GTB (05:52)
[2019-07-20] MEDS: BUDESONIDE (NEB) 0.5MG/2ML AMP INH ×2 (08:09→20:44)
[2019-07-20] MEDS: ESCITALOPRAM 10 MG TAB GTB (10:07)
[2019-07-20] MEDS: LIDOCAINE 5% PATCH TD (10:07)
[2019-07-20] MEDS: MULTIVITAMINS 30 ML CUP GTB (10:07)
[2019-07-20] MEDS: FAMOTIDINE 20 MG TAB GTB (10:08)
[2019-07-20] MEDS: ASCORBIC ACID 250 MG TAB GTB (10:08)
[2019-07-20] MEDS: FOLIC ACID 1 MG TAB GTB (10:08)
[2019-07-20] MEDS: AMIODARONE 200 MG TAB GTB (10:08)
[2019-07-20] MEDS: BALSAM PERU/CASTOR OIL 60 GM TUBE TOP (10:08)
[2019-07-20] MEDS: DIPHENHYDRAMINE 25 MG CAP GTB (15:12)
[2019-07-21] MEDS: LACTULOSE 30ML CUP GTB ×3 (00:35→12:42)
[2019-07-21] MEDS: DIPHENHYDRAMINE 25 MG CAP GTB ×2 (03:31→16:43)
[2019-07-21] MEDS: HYDROmorphONE 2 MG TAB GTB ×4 (03:32→16:44)
[2019-07-21] MEDS: LANSOPRAZOLE (SOLTAB) 30 MG TAB GTB (05:53)
[2019-07-21] MEDS: PIPER-TAZO 3.375 GM IV (PMX) 100 ML IVPB ×2 (05:53→12:45)
[2019-07-21] MEDS: BUDESONIDE (NEB) 0.5MG/2ML AMP INH (08:14)
[2019-07-21] MEDS: ALBUTEROL/IPRATROPIUM (NEB) 3 ML AMP INH ×2 (08:15→16:41)
[2019-07-21] MEDS: LIDOCAINE 5% PATCH TD (08:40)
[2019-07-21] MEDS: MULTIVITAMINS 30 ML CUP GTB (08:42)
[2019-07-21] MEDS: ESCITALOPRAM 10 MG TAB GTB (08:42)
[2019-07-21] MEDS: FOLIC ACID 1 MG TAB GTB (08:43)
[2019-07-21] MEDS: FAMOTIDINE 20 MG TAB GTB (08:43)
[2019-07-21] MEDS: ASCORBIC ACID 250 MG TAB GTB (08:43)
[2019-07-21] MEDS: BALSAM PERU/CASTOR OIL 60 GM TUBE TOP (08:44)
[2019-07-21] MEDS: AMIODARONE 200 MG TAB GTB (08:49)
== END 2019-07-21 18:20 | DRG 871 ==
LOC: E/R 11:43 → 6WM 13:44
DX: A41.9 Sepsis, unspecified organism (principal); J69.0 Pneumonitis due to inhalation of food and vomit; E43 Unspecified severe protein-calorie malnutrition; J96.21 Acute and chronic respiratory failure with hypoxia; E87.1 Hypo-osmolality and hyponatremia; J44.1 Chronic obstructive pulmonary disease with (acute) exacerbation; Z68.1 Body mass index [BMI] 19.9 or less, adult; R13.10 Dysphagia, unspecified; D64.9 Anemia, unspecified; F32.9 Major depressive disorder, single episode, unspecified; K21.9 Gastro-esophageal reflux disease without esophagitis
CPT/HCPCS: 36415; 71045; 74230; 80053; 80061; 80202; 82565; 83036; 83605; 83735; 84100; 84436; 84443; 84479; 84484; 84520; 85025; 85610; 85730; 87040-91; 87081; 92526; 92610; 92611; 93005; 94640; 94664; 96374; 96375; 99285-25